=== PATIENT | female | born 1980 ===

== ENCOUNTER 2022-06-25 08:45 | Outpatient (CLI) | payer OTHER | END 2022-06-25 08:49 | disposition home or self-care (01) | LOC: SONOGRAMA 08:45 | PROVIDERS: ATTEND Obstetrics & Gynecology Reproductive Endocrinology | DX: N97.9 Female infertility, unspecified (principal) ==

== ENCOUNTER 2025-07-25 09:12 | Outpatient (CLI) | payer OTHER | END 2025-07-25 09:21 | disposition home or self-care (01) | LOC: SONOGRAMA 09:12 | DX: M25.541 Pain in joints of right hand (principal); M25.542 Pain in joints of left hand; N97.1 Female infertility of tubal origin ==